=== PATIENT | male | born 1985 ===

== ENCOUNTER 2017-10-28 23:17 | Emergency (ER) | payer OTHER ==
[2017-10-28] MEDS ORDERED: CEFTRIAXONE SODIUM 1 GM ONE (23:37)
[2017-10-28] MEDS ORDERED: LIDOCAINE HCL-MPF 1% 2ML VIAL ONE (23:37)
== END 2017-10-29 00:25 | disposition home or self-care (01) ==
LOC: EDH 23:17
DX: L03.113 Cellulitis of right upper limb (principal); Z90.49 Acquired absence of other specified parts of digestive tract; Z72.0 Tobacco use; Z91.013 Allergy to seafood
CPT/HCPCS: 96372; 99283; J0696; J3490